=== PATIENT | male | born 1975 | race Caucasian/White ===

== ENCOUNTER 2023-05-17 09:59 | Day surgery (SDC) | payer BC, OTHER ==
[2023-05-14 09:33] VITALS: BMI 32.1
[2023-05-17 11:58] VITALS: TEMP 97.1
[2023-05-17 12:08] VITALS: RESP 16
[2023-05-17 12:42] VITALS: BP 149/89; PULSE 90
== END 2023-05-17 12:25 | disposition home or self-care (01) ==
LOC: JASU-ENDO 09:59
PROVIDERS: ATTEND Internal Medicine Gastroenterology
PROC: 0DBM8ZX Excision of Descending Colon, Via Natural or Artificial Opening Endoscopic, Diagnostic (ICD-10-PCS; principal; 2023-05-17 11:39)
DX: Z12.11 Encounter for screening for malignant neoplasm of colon (principal); K63.5 Polyp of colon; K64.1 Second degree hemorrhoids; K64.8 Other hemorrhoids
CPT/HCPCS: 88305-TC